=== PATIENT | female | born 1980 | race Caucasian/White ===

== ENCOUNTER 2017-03-14 03:02 | Inpatient (IN) ==
--- NOTE | 2017-03-14 03:06 | Emergency Department Note ---
Disposition Clinical Impression: Acute anxiety Bipolar disorder Qualifiers: Active/Remission status: remission status unspecified Qualified Code(s): F31.9 - Bipolar disorder, unspecified Disposition: Admitted As Inpatient Condition: Good Referrals: NONE,PCP [Primary Care Provider] - Forms: ED Satisfaction Letter Time of Disposition: 05:27 General Adult HPI - General Chief complaint: ED Psychiatric Symptoms Stated complaint: suicidal Time Seen by Provider: 03/14/17 03:04 - Related Data Previous Rx's Medication Instructions Recorded HYDROcodone/Acet 5/325 mg [[place] 1 tab PO Q6H PRN #6 tab 07/05/16 5-325 mg] predniSONE [PredniSONE] 40 mg PO DAILY 6 Days tablet 07/05/16 Tramadol HCl [Ultram] 50 mg PO BID PRN #5 tab 02/21/17 LORazepam [Ativan] 0.5 mg PO TID PRN #6 tablet 03/12/17 Allergies Allergy/AdvReac Type Severity Reaction Status Date / Time NSAIDS (Non-Steroidal Allergy See Verified 03/14/17 03:10 Anti-Inflamma Comments promethazine [From Phenergan] Allergy See Verified 03/14/17 03:10 Comments Sulfa (Sulfonamide Allergy See Verified 03/14/17 03:10 Antibiotics) Comments Past Medical History - Past Medical History Medical history: Reports: asthma, hypertension, migraine, other Psychiatric history: Reports: ADHD, bipolar - Social History Smoking Status: Former smoker Smokeless Tobacco Status: No Alcohol use: Reports: none Drug use: Reports: none Course Vital Signs Temperature 98.1 F 03/14/17 03:10 Pulse Rate 68 03/14/17 03:10 Respiratory Rate 20 03/14/17 03:10 Blood Pressure 160/106 03/14/17 03:10 O2 Sat by Pulse Oximetry 98 03/14/17 03:10 Temperature 98.0 F 03/14/17 03:28 Pulse Rate 90 03/14/17 03:28 Respiratory Rate 20 03/14/17 03:28 Blood Pressure 160/106 03/14/17 03:28 O2 Sat by Pulse Oximetry 99 03/14/17 03:28 Oxygen Delivery Oxygen Delivery Room Air Medical Decision Making - Lab Data Lab results reviewed: Yes I reviewed the patient's lab results. Result diagrams: 03/14/17 03:40 03/14/17 03:40 Lab Results 03/14/17 03/14/17 03/14/17 Range/Units 03:40 03:40 03:40 WBC 7.8 (4.3-11.1) K/mcL RBC 4.06 (3.82-4.97) M/mcL Hgb 11.6 (11.5-15.4) g/dL Hct 35.8 (35.3-44.9) % MCV 88.2 (83.0-100.0) fL MCH 28.6 (28.0-33.3) pg MCHC 32.4 (31.6-35.5) g/dL RDW 13.7 (11.5-14.5) % Plt Count 311 (140-400) K/mcL MPV 10.8 (9.4-12.4) fL Immature Gran % 0.3 (0-4) % Seg Neutrophils % 62.8 % Lymphocytes % 26.6 % Monocytes % 5.7 % Eosinophils % 4.0 % Basophils % 0.6 % Neutrophils # 4.9 (1.6-8.9) K/mcL Lymphocytes # 2.1 (0.6-4.6) K/mcL Monocytes # 0.4 (0.0-1.3) K/mcL Eosinophils # 0.3 (0.0-0.6) K/mcL Basophils # 0.1 (0.0-0.2) K/mcL Sodium 139 (136-145) mEq/L Potassium 3.4 L (3.5-4.5) mEq/L Chloride 105 (98-109) mEq/L Carbon Dioxide 23 (19-29) mEq/L BUN 10 (7-20) mg/dL Creatinine 0.92 (0.57-1.11) mg/dL Est GFR ( Amer) > 60 (> 60) Est GFR (Non-Af Amer) > 60 (> 60) BUN/Creatinine Ratio 11 (6-26) Glucose 106 H (70-99) mg/dL Calculated Osmolality 287 (280-300) Calcium 9.3 (8.6-10.8) mg/dL Serum , Qual Negative (Negative) Urine Color (Yellow) Urine Clarity (Clear) Urine pH (5.0-8.0) pH Units Ur Specific [place] (1.010-1.025) Urine Protein (Neg-Trace) mg/dL Urine Glucose (UA) (Normal) mg/dL Urine Ketones (Negative) mg/dL Urine Blood (Negative) Urine Nitrite (Negative) Urine Bilirubin (Negative) Urine Urobilinogen (Normal) mg/dL Ur Leukocyte Esterase (Negative) Salicylates < 5.0 L (15-30) mg/dL Urine Opiates Screen (Qdjnfb=987) ng/mL Acetaminophen < 1.0 L (10-30) mcg/mL Ur Barbiturates Screen (Ncmcbv=125) ng/mL Ur Phencyclidine Scrn (Cutoff=25) ng/mL Ur Amphetamines Screen (Lbcrxh=4043) ng/mL U Benzodiazepines Scrn (Dcczmt=647) ng/mL Urine Cocaine Screen (Cutoff= 300) ng/mL U Marijuana (THC) Screen (Cutoff = 50) ng/mL Ethyl Alcohol < 10 (0-10) mg/dL 03/14/17 03/14/17 Range/Units 04:00 04:00 WBC (4.3-11.1) K/mcL RBC (3.82-4.97) M/mcL Hgb (11.5-15.4) g/dL Hct (35.3-44.9) % MCV (83.0-100.0) fL MCH (28.0-33.3) pg MCHC (31.6-35.5) g/dL RDW (11.5-14.5) % Plt Count (140-400) K/mcL MPV (9.4-12.4) fL Immature Gran % (0-4) % Seg Neutrophils % % Lymphocytes % % Monocytes % % Eosinophils % % Basophils % % Neutrophils # (1.6-8.9) K/mcL Lymphocytes # (0.6-4.6) K/mcL Monocytes # (0.0-1.3) K/mcL Eosinophils # (0.0-0.6) K/mcL Basophils # (0.0-0.2) K/mcL Sodium (136-145) mEq/L Potassium (3.5-4.5) mEq/L Chloride (98-109) mEq/L Carbon Dioxide (19-29) mEq/L BUN (7-20) mg/dL Creatinine (0.57-1.11) mg/dL Est GFR ( Amer) (> 60) Est GFR (Non-Af Amer) (> 60) BUN/Creatinine Ratio (6-26) Glucose (70-99) mg/dL Calculated Osmolality (280-300) Calcium (8.6-10.8) mg/dL Serum , Qual (Negative) Urine Color Yellow (Yellow) Urine Clarity Clear (Clear) Urine pH 6.0 (5.0-8.0) pH Units Ur Specific [place] 1.017 (1.010-1.025) Urine Protein Negative (Neg-Trace) mg/dL Urine Glucose (UA) Normal (Normal) mg/dL Urine Ketones Negative (Negative) mg/dL Urine Blood Negative (Negative) Urine Nitrite Negative (Negative) Urine Bilirubin Negative (Negative) Urine Urobilinogen Normal (Normal) mg/dL Ur Leukocyte Esterase Negative (Negative) Salicylates (15-30) mg/dL Urine Opiates Screen Negative (Zvkxhw=063) ng/mL Acetaminophen (10-30) mcg/mL Ur Barbiturates Screen Negative (Wpfzwy=023) ng/mL Ur Phencyclidine Scrn Negative (Cutoff=25) ng/mL Ur Amphetamines Screen Negative (Rzofcy=3718) ng/mL U Benzodiazepines Scrn Negative (Xvjpzn=910) ng/mL Urine Cocaine Screen Negative (Cutoff= 300) ng/mL U Marijuana (THC) Screen Negative (Cutoff = 50) ng/mL Ethyl Alcohol (0-10) mg/dL Attestation Statement - Attestation Attestation: For this encounter, I have reviewed the DIRECTOR OF FINANCE or PA documentation, treatment plan, and medical decision making; and I have had face to face time with this patient. [id number] time provided Patient arrives by EMS. She requests behavioral evaluation. Appears in no acute distress on exam
--- NOTE | 2017-03-14 03:23 | Emergency Department Note ---
Disposition Clinical Impression: Acute anxiety Bipolar disorder Qualifiers: Active/Remission status: remission status unspecified Qualified Code(s): F31.9 - Bipolar disorder, unspecified Disposition: Still a Patient Condition: Good Referrals: NONE,PCP [Primary Care Provider] - Forms: ED Satisfaction Letter Time of Disposition: 05:15 Psych HPI - General Chief Complaint: ED Psychiatric Symptoms Stated Complaint: suicidal Time Seen by Provider: 03/14/17 03:04 Nursing Notes Reviewed: Yes Vital Signs Reviewed: Yes - History of Present Illness HPI Narrative: 36-year-old female complains of concern for her safety at home, and she also mentions concern for the safety of her son could be.. She does describe a history of psychiatric illness, but had called squad today after she describes as a argument with her mom. Patient states that her mood has been "explosive" reset ever has before, and she is concerned. She was seen in this department 2 separate times in the past 2 days, her first visit she was given a prescription of Ativan, that the patient states that she is not taking. She mentions she has a psychiatric appointment scheduled for later today, but states that she will not be able to get there. She mentions that she does have homicidal ideations, specifically saying that she wants to kill "random people" she denies any suicidal ideation or thoughts of self-harm, she denies any visual or auditory hallucinations. She denies any pain, or any recent illness. - Related Data Previous Rx's Medication Instructions Recorded HYDROcodone/Acet 5/325 mg [[place] 1 tab PO Q6H PRN #6 tab 07/05/16 5-325 mg] predniSONE [PredniSONE] 40 mg PO DAILY 6 Days tablet 07/05/16 Tramadol HCl [Ultram] 50 mg PO BID PRN #5 tab 02/21/17 LORazepam [Ativan] 0.5 mg PO TID PRN #6 tablet 03/12/17 Allergies Allergy/AdvReac Type Severity Reaction Status Date / Time NSAIDS (Non-Steroidal Allergy See Verified 03/14/17 03:10 Anti-Inflamma Comments promethazine [From Phenergan] Allergy See Verified 03/14/17 03:10 Comments Sulfa (Sulfonamide Allergy See Verified 03/14/17 03:10 Antibiotics) Comments All systems ED: reviewed and negative except as stated. Constitutional: Denies: fever, chills Eyes: Denies: vision change ENT ED: Reports: other (tongue "bumps"). Denies: throat pain Cardiovascular: Denies: chest pain Respiratory: Denies: dyspnea Gastrointestinal: Denies: abdominal pain, nausea, vomiting Genitourinary: Denies: dysuria Musculoskeletal: Denies: back pain Integumentary: Denies: rash Neurological: Denies: headache Psychiatric: Reports: anxiety, homicidal thoughts. Denies: depression, suicidal thoughts, auditory hallucinations, visual hallucinations Endocrine: Denies: fatigue Hematological/Lymphatic: Denies: easy bleeding Allergic/Immunologic: Denies: facial swelling Past Medical History - Past Medical History Medical history: Reports: asthma, hypertension, migraine, other Psychiatric history: Reports: ADHD, bipolar - Social History Smoking Status: Former smoker Smokeless Tobacco Status: No Alcohol use: Reports: none Drug use: Reports: none Physical Exam - General Limitations: altered mental status General appearance: in no apparent distress - Head Head exam: atraumatic, normocephalic - Eye Eye exam: Absent: conjunctival injection - ENT ENT exam: normal oropharynx, mucous membranes moist - Expanded ENT Exam Nose exam: negative: rhinorrhea Mouth exam: Present: normal external inspection, tongue normal. Absent: drooling, trismus, lip swelling, tongue elevation, tounge swelling - Neck Neck exam: Present: full ROM - Chest Chest inspection: Present: symmetric chest wall rise - Respiratory Respiratory exam: Absent: respiratory distress - Cardiovascular Cardiovascular exam: Present: regular rate - Extremities Exam Extremities exam: Present: full ROM, normal capillary refill - Back Exam Back exam: Present: full ROM - Neurological Exam Neurological exam: Present: alert, oriented X3 - Psychiatric Psychiatric exam: Present: normal affect, agitated, anxious, manic, homicidal ideation. Absent: suicidal ideation - Skin Skin exam: Present: warm, dry, intact, normal color. Absent: rash, cyanosis, diaphoresis Course Course Narrative: Patient is a 36-year-old female who arrives via squad with chief complaint of concern for her safety at home as well as received his her child. She reported that she has a history of bipolar disorder. She was seen at 2 days ago here in the emergency department, given prescriptions with Ativan, and regulations to follow-up with her psychiatrist that she has scheduled for an appointment later today (03/14/2017). She also seen in this department yesterday, was evaluated by one of the staff, with recommendations to follow-up with her psychiatrist tomorrow. She denies any pain, recent illness, but has told nursing that she may be . She presents tonight with complaint of worsening mood. She mentions that she wants to kill random people. She describes an altercation with her mother. I reviewed the patient's medical records, apparently child protective services are involved, and patient's mother was concerned for her well-being as well. On examination, patient is alert and oriented 3, well-appearing in no acute distress. Head face extremities atraumatic. No evidence of any respiratory distress. Heart rate within limits. Skin warm dry intact normal color. She appears clinically sober, however easily agitated. Due to patient's agitation, reported homicidal ideation, and this being her third visit to emergency department, I do feel that a evaluation by behavioral health is warranted at this time. I will attempt to clear her medically for 1 evaluation. - Reevaluation(s) Reevaluation #1: Patient's lab work unremarkable. She does have amphetamines on her urine drug screen, but medical records shows that she does take ADHD medications. Her vitals are stable to normal limits. She states that she is hungry. 1A has been contacted. Time: 04:39 Reevaluation #2: 1A at bedside. At this time it is the end of my shift, care of this patient will be transferred over to Dr. Navarro. Please see his further documentation for details. Time: 05:15 Vital Signs Temperature 98.1 F 03/14/17 03:10 Pulse Rate 68 03/14/17 03:10 Respiratory Rate 20 03/14/17 03:10 Blood Pressure 160/106 03/14/17 03:10 O2 Sat by Pulse Oximetry 98 03/14/17 03:10 Temperature 98.0 F 03/14/17 03:28 Pulse Rate 90 03/14/17 03:28 Respiratory Rate 20 03/14/17 03:28 Blood Pressure 160/106 03/14/17 03:28 O2 Sat by Pulse Oximetry 99 03/14/17 03:28 Oxygen Delivery Oxygen Delivery Room Air Psych - Lab Data Result diagrams: 03/14/17 03:40 03/14/17 03:40 Lab Results 03/14/17 03/14/17 03/14/17 Range/Units 03:40 03:40 03:40 WBC 7.8 (4.3-11.1) K/mcL RBC 4.06 (3.82-4.97) M/mcL Hgb 11.6 (11.5-15.4) g/dL Hct 35.8 (35.3-44.9) % MCV 88.2 (83.0-100.0) fL MCH 28.6 (28.0-33.3) pg MCHC 32.4 (31.6-35.5) g/dL RDW 13.7 (11.5-14.5) % Plt Count 311 (140-400) K/mcL MPV 10.8 (9.4-12.4) fL Immature Gran % 0.3 (0-4) % Seg Neutrophils % 62.8 % Lymphocytes % 26.6 % Monocytes % 5.7 % Eosinophils % 4.0 % Basophils % 0.6 % Neutrophils # 4.9 (1.6-8.9) K/mcL Lymphocytes # 2.1 (0.6-4.6) K/mcL Monocytes # 0.4 (0.0-1.3) K/mcL Eosinophils # 0.3 (0.0-0.6) K/mcL Basophils # 0.1 (0.0-0.2) K/mcL Sodium 139 (136-145) mEq/L Potassium 3.4 L (3.5-4.5) mEq/L Chloride 105 (98-109) mEq/L Carbon Dioxide 23 (19-29) mEq/L BUN 10 (7-20) mg/dL Creatinine 0.92 (0.57-1.11) mg/dL Est GFR ( Amer) > 60 (> 60) Est GFR (Non-Af Amer) > 60 (> 60) BUN/Creatinine Ratio 11 (6-26) Glucose 106 H (70-99) mg/dL Calculated Osmolality 287 (280-300) Calcium 9.3 (8.6-10.8) mg/dL Serum , Qual Negative (Negative) Urine Color (Yellow) Urine Clarity (Clear) Urine pH (5.0-8.0) pH Units Ur Specific [place] (1.010-1.025) Urine Protein (Neg-Trace) mg/dL Urine Glucose (UA) (Normal) mg/dL Urine Ketones (Negative) mg/dL Urine Blood (Negative) Urine Nitrite (Negative) Urine Bilirubin (Negative) Urine Urobilinogen (Normal) mg/dL Ur Leukocyte Esterase (Negative) Salicylates < 5.0 L (15-30) mg/dL Urine Opiates Screen (Radrfg=479) ng/mL Acetaminophen < 1.0 L (10-30) mcg/mL Ur Barbiturates Screen (Angzqb=734) ng/mL Ur Phencyclidine Scrn (Cutoff=25) ng/mL Ur Amphetamines Screen (Xspiyx=2434) ng/mL U Benzodiazepines Scrn (Bbnopu=759) ng/mL Urine Cocaine Screen (Cutoff= 300) ng/mL U Marijuana (THC) Screen (Cutoff = 50) ng/mL Ethyl Alcohol < 10 (0-10) mg/dL 03/14/17 03/14/17 Range/Units 04:00 04:00 WBC (4.3-11.1) K/mcL RBC (3.82-4.97) M/mcL Hgb (11.5-15.4) g/dL Hct (35.3-44.9) % MCV (83.0-100.0) fL MCH (28.0-33.3) pg MCHC (31.6-35.5) g/dL RDW (11.5-14.5) % Plt Count (140-400) K/mcL MPV (9.4-12.4) fL Immature Gran % (0-4) % Seg Neutrophils % % Lymphocytes % % Monocytes % % Eosinophils % % Basophils % % Neutrophils # (1.6-8.9) K/mcL Lymphocytes # (0.6-4.6) K/mcL Monocytes # (0.0-1.3) K/mcL Eosinophils # (0.0-0.6) K/mcL Basophils # (0.0-0.2) K/mcL Sodium (136-145) mEq/L Potassium (3.5-4.5) mEq/L Chloride (98-109) mEq/L Carbon Dioxide (19-29) mEq/L BUN (7-20) mg/dL Creatinine (0.57-1.11) mg/dL Est GFR ( Amer) (> 60) Est GFR (Non-Af Amer) (> 60) BUN/Creatinine Ratio (6-26) Glucose (70-99) mg/dL Calculated Osmolality (280-300) Calcium (8.6-10.8) mg/dL Serum , Qual (Negative) Urine Color Yellow (Yellow) Urine Clarity Clear (Clear) Urine pH 6.0 (5.0-8.0) pH Units Ur Specific [place] 1.017 (1.010-1.025) Urine Protein Negative (Neg-Trace) mg/dL Urine Glucose (UA) Normal (Normal) mg/dL Urine Ketones Negative (Negative) mg/dL Urine Blood Negative (Negative) Urine Nitrite Negative (Negative) Urine Bilirubin Negative (Negative) Urine Urobilinogen Normal (Normal) mg/dL Ur Leukocyte Esterase Negative (Negative) Salicylates (15-30) mg/dL Urine Opiates Screen Negative (Yzvisc=176) ng/mL Acetaminophen (10-30) mcg/mL Ur Barbiturates Screen Negative (Biuuig=324) ng/mL Ur Phencyclidine Scrn Negative (Cutoff=25) ng/mL Ur Amphetamines Screen Negative (Pudbjn=1775) ng/mL U Benzodiazepines Scrn Negative (Jmjyqe=413) ng/mL Urine Cocaine Screen Negative (Cutoff= 300) ng/mL U Marijuana (THC) Screen Negative (Cutoff = 50) ng/mL Ethyl Alcohol (0-10) mg/dL Psychiatric Medical Clearance - Medical Clearance Checklist Medical History: Acute anxiety (Acute) Mental health-related complaint (Acute) Bipolar disorder (Acute) Abdominal cramping (Inactive) Cervical motion tenderness (Inactive) Hypertension (Inactive) Hypokalemia (Inactive) Lumbar radiculopathy, right (Inactive) RUQ abdominal pain (Inactive) No Social History Section defined Current Vitals: Last Vital Signs Temp 98.0 F 03/14/17 03:28 Pulse 90 03/14/17 03:28 Resp 20 03/14/17 03:28 BP 160/106 03/14/17 03:28 Pulse Ox 99 03/14/17 03:28 Psychiatric Lab Panel: Drug Levels and Toxicity 03/14/17 03/14/17 03:40 04:00 Urine Opiates Screen Negative Acetaminophen < 1.0 L Ur Barbiturates Screen Negative Ur Phencyclidine Scrn Negative Ur Amphetamines Screen Negative U Benzodiazepines Scrn Negative Urine Cocaine Screen Negative U Marijuana (THC) Screen Negative Ethyl Alcohol < 10 Abnormal Labs: Abnormal lab results Potassium 3.4 mEq/L (3.5-4.5) L 03/14/17 03:40 Glucose 106 mg/dL (70-99) H 03/14/17 03:40 Salicylates < 5.0 mg/dL (15-30) L 03/14/17 03:40 Acetaminophen < 1.0 mcg/mL (10-30) L 03/14/17 03:40 Statement of Medical Clearance: I have evaluated the patient, reviewed diagnostic information, and certify that the patient's medical condition is sufficiently stable that transfer to the psychiatric unit does not pose a significant risk of deterioration.
[2017-03-14 03:54] LABS: Basophils # 0.1 K/mcL (0.0-0.2); Basophils % 0.6 %; Eosinophils # 0.3 K/mcL (0.0-0.6); Hematocrit 35.8 % (35.3-44.9); Hemoglobin 11.6 g/dL (11.5-15.4); Immature Granulocytes % 0.3 % (0-4); Lymphocytes # 2.1 K/mcL (0.6-4.6); Lymphocytes % 26.6 %; Mean Corpuscular HGB Conc 32.4 g/dL (31.6-35.5); Mean Corpuscular Hemoglobin 28.6 pg (28.0-33.3); Mean Corpuscular Volume 88.2 fL (83.0-100.0); Mean Platelet Volume 10.8 fL (9.4-12.4); Monocytes # 0.4 K/mcL (0.0-1.3); Monocytes % 5.7 %; Neutrophils # 4.9 K/mcL (1.6-8.9); Platelet Count 311 K/mcL (140-400); Red Blood Count 4.06 M/mcL (3.82-4.97); Red Cell Distribution Width 13.7 % (11.5-14.5); Segmented Neutrophils % 62.8 %
[2017-03-14 04:07] LABS: BUN/Creatinine Ratio 11 (6-26); Blood Urea Nitrogen 10 mg/dL (7-20); Calcium 9.3 mg/dL (8.6-10.8); Carbon Dioxide 23 mEq/L (19-29); Chloride 105 mEq/L (98-109); Glucose 106 mg/dL (70-99); Osmolality,Calculated 287 (280-300); Potassium 3.4 mEq/L (3.5-4.5); Sodium 139 mEq/L (136-145); eGFR For African Americans > 60 (> 60); eGFR For Non-African Americans > 60 (> 60)
[2017-03-14 04:09] LABS: Acetaminophen < 1.0 mcg/mL (10-30); Ethanol < 10 mg/dL (0-10); Salicylate < 5.0 mg/dL (15-30)
[2017-03-14 04:12] LABS: Bilirubin,Urine Negative (Negative); Blood,Urine Negative (Negative); Clarity,Urine Clear (Clear); Color,Urine Yellow (Yellow); Glucose,Urine (UA) Normal (Normal); Ketones,Urine Negative (Negative); Leukocyte Esterase,Urine Negative (Negative); Nitrite,Urine Negative (Negative); Protein,Urine Negative (Neg-Trace); Specific Gravity,Urine 1.017 (1.010-1.025); Urobilinogen,Urine Normal (Normal)
[2017-03-14 04:16] LABS: Amphetamine Screen,Urine Negative ng/mL (Cutoff=1000); Barbiturate Screen,Urine Negative ng/mL (Cutoff=200); Benzodiazepines Screen,Urine Negative ng/mL (Cutoff=200); Cannabinoid Screen,Urine Negative ng/mL (Cutoff = 50); Cocaine Screen,Urine Negative ng/mL (Cutoff= 300); Opiate Screen,Urine Negative ng/mL (Cutoff=300); Phencyclidine Screen,Urine Negative ng/mL (Cutoff=25)
[2017-03-14] MEDS ORDERED: *HR* LORazepam 2 MG/ML VIAL IM ONE (05:26)
[2017-03-14] MEDS ORDERED: MOM Conc 10 ML UD.LIQ PO PRN (05:48)
[2017-03-14] MEDS ORDERED: Mag Hydrox/Al Hydrox/Simeth 30 ML UDC PO PRN (05:48)
[2017-03-14] MEDS ORDERED: *HR* LORazepam 2 MG/ML VIAL IM PRN (05:48)
[2017-03-14] MEDS ORDERED: Haloperidol Lactate 5 MG/ML VIAL IM PRN (05:48)
--- NOTE | 2017-03-14 09:42 | Psychiatry History & Physical ---
Date of Encounter: 03/14/17 Time of Encounter: 10:00 History of Present Illness Patient Stated Chief Complaint: "I am having some issues." Medicare Admission Attestation: For traditional Medicare patients the provided hospital inpatient services are reasonable and necessary and in the case of services not specified as inpatient -only under 42 CFR 419.22 (n), that they are appropriately provided as inpatient services in accordance 42 CFR 412.3. For Critical Access Hospital the patient may reasonably be expected to be discharged or transferred to a hospital within 96 hours after admission to the Critical Access Hospital. Admitted From: Emergency Dept Plans for Post Hospital Care: Home History of Present Illness: Ms. Gil is a 36 year old female with a reported history of bipolar disorder as well as anxiety who presented to the hospital reporting vague homicidal ideation and some stressors related to custody of her son. According to staff CPS is now involved and this is concerning for the patient. She was agitated and upset in the ER last night and given IM medication early this morning. Since admission she has been groggy and a little bit confused. She reports that she has had difficulty sleeping and difficulty with her mood. She is unable to verify whether or not she wants to hurt herself or others at this time. She is a bit groggy. 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 She states there is a custody agreement between her and her child's father. "He is just a sperm donor." She states that the child is very upset about something but is not able to give details about this. Her thought processes is not organized at this time. She is irritable and upset about being woken up from sleep. She does report depressed mood and mood swings over the past few days. Past Med Surg Social Fam HX - Past Medical History Medical history: asthma, hypertension, migraine, other - Past Psychiatric History Psychiatric history: Reports: bipolar Past psychiatric history details: Patient last saw her current psychiatrist about two months. Patient is unclear about previous psych admissions but does have long-standing history of outpatient treatment for bipolar disorder. She denies suicide attempts in the past. Family psychiatric history: Yes Family Psychiatric History Details: Mother and grandfather have depression. Family History of Suicide: Completed (Grandfather) - Social History Smoking Status: Former smoker Smokeless Tobacco Status: No Alcohol use: none Drug use: none Medications & Allergies Tramadol HCl [Ultram] 50 mg PO BID PRN #5 tab 02/21/17 [Rx] Buspirone HCl [Buspar] 15 mg PO BID 03/14/17 [History] Carvedilol 3.125 mg PO BID 03/14/17 [History] Dextroamphetamine/Amphetamine [Adderall 15 mg Tablet] 15 mg PO BID 03/14/17 [ History] Levothyroxine [Synthroid] 88 mcg PO DAILY 03/14/17 [History] [place] Carbonate 600 mg PO QAM 03/14/17 [History] [place] Carbonate [[place] Carbonate] 900 mg PO QPM 03/14/17 [History] Lurasidone [Latuda] 40 mg PO DAILY 03/14/17 [History] Metformin HCl [Metformin HCl ER] 500 mg PO DAILY 03/14/17 [History] Montelukast [Singulair] 10 mg PO DAILY 03/14/17 [History] 3 Allergy/AdvReac Type Severity Reaction Status Date / Time NSAIDS (Non-Steroidal Allergy See Verified 03/14/17 03:10 Anti-Inflamma Comments promethazine [From Phenergan] Allergy See Verified 03/14/17 03:10 Comments Sulfa (Sulfonamide Allergy See Verified 03/14/17 03:10 Antibiotics) Comments Review of Systems ROS limited: due to patient condition Psychiatric: Reports: depression, anxiety, abnormal sleep pattern, homicidal ideation, confusion, memory loss, difficulty concentrating, hopelessness, irritability, mood swings Mental Status Exam Patient orientation: Yes Person, No Time, Yes Place Level of alertness: Sedated Patient appearance: Disheveled Behavior: restless, uncooperative, distractible Psychomotor activity: Slowed Eye contact: Avoids Eye Contact Mood description: Irritable Affect description: congruent with mood Speech pattern: Slowed, Slurred Speech volume: Normal Thought process: Disorganized Thought content: Yes Poverty of Content Perceptual disturbances: No Reacting to internal stimuli, No Auditory hallucinations Attention span: Unable to Focus, Unable to Sustain Attention Memory description: Recent Impaired Patient reliability: Not Reliable Historian Intelligence estimate: Average Judgment: Poor Insight: None Results - Vital Signs Vital signs: Temp Pulse Resp BP Pulse Ox 97.4 F L 70 18 149/89 99 03/14/17 06:00 03/14/17 06:00 03/14/17 06:00 03/14/17 06:00 03/14/17 05:49 - Labs Labs: Laboratory Last Values WBC 7.8 K/mcL (4.3-11.1) 03/14/17 03:40 RBC 4.06 M/mcL (3.82-4.97) 03/14/17 03:40 Hgb 11.6 g/dL (11.5-15.4) 03/14/17 03:40 Hct 35.8 % (35.3-44.9) 03/14/17 03:40 MCV 88.2 fL (83.0-100.0) 03/14/17 03:40 MCH 28.6 pg (28.0-33.3) 03/14/17 03:40 MCHC 32.4 g/dL (31.6-35.5) 03/14/17 03:40 RDW 13.7 % (11.5-14.5) 03/14/17 03:40 Plt Count 311 K/mcL (140-400) 03/14/17 03:40 MPV 10.8 fL (9.4-12.4) 03/14/17 03:40 Immature Gran % 0.3 % (0-4) 03/14/17 03:40 Seg Neutrophils % 62.8 % 03/14/17 03:40 Lymphocytes % 26.6 % 03/14/17 03:40 Monocytes % 5.7 % 03/14/17 03:40 Eosinophils % 4.0 % 03/14/17 03:40 Basophils % 0.6 % 03/14/17 03:40 Neutrophils # 4.9 K/mcL (1.6-8.9) 03/14/17 03:40 Lymphocytes # 2.1 K/mcL (0.6-4.6) 03/14/17 03:40 Monocytes # 0.4 K/mcL (0.0-1.3) 03/14/17 03:40 Eosinophils # 0.3 K/mcL (0.0-0.6) 03/14/17 03:40 Basophils # 0.1 K/mcL (0.0-0.2) 03/14/17 03:40 Sodium 139 mEq/L (136-145) 03/14/17 03:40 Potassium 3.4 mEq/L (3.5-4.5) L 03/14/17 03:40 Chloride 105 mEq/L (98-109) 03/14/17 03:40 Carbon Dioxide 23 mEq/L (19-29) 03/14/17 03:40 BUN 10 mg/dL (7-20) 03/14/17 03:40 Creatinine 0.92 mg/dL (0.57-1.11) 03/14/17 03:40 Est GFR ( Amer) > 60 (> 60) 03/14/17 03:40 Est GFR (Non-Af Amer) > 60 (> 60) 03/14/17 03:40 BUN/Creatinine Ratio 11 (6-26) 03/14/17 03:40 Glucose 106 mg/dL (70-99) H 03/14/17 03:40 Calculated Osmolality 287 (280-300) 03/14/17 03:40 Calcium 9.3 mg/dL (8.6-10.8) 03/14/17 03:40 Serum , Qual Negative (Negative) 03/14/17 03:40 Urine Color Yellow (Yellow) 03/14/17 04:00 Urine Clarity Clear (Clear) 03/14/17 04:00 Urine pH 6.0 pH Units (5.0-8.0) 03/14/17 04:00 Ur Specific [place] 1.017 (1.010-1.025) 03/14/17 04:00 Urine Protein Negative mg/dL (Neg-Trace) 03/14/17 04:00 Urine Glucose (UA) Normal mg/dL (Normal) 03/14/17 04:00 Urine Ketones Negative mg/dL (Negative) 03/14/17 04:00 Urine Blood Negative (Negative) 03/14/17 04:00 Urine Nitrite Negative (Negative) 03/14/17 04:00 Urine Bilirubin Negative (Negative) 03/14/17 04:00 Urine Urobilinogen Normal mg/dL (Normal) 03/14/17 04:00 Ur Leukocyte Esterase Negative (Negative) 03/14/17 04:00 Salicylates < 5.0 mg/dL (15-30) L 03/14/17 03:40 Urine Opiates Screen Negative ng/mL (Lrmebn=578) 03/14/17 04:00 Acetaminophen < 1.0 mcg/mL (10-30) L 03/14/17 03:40 Ur Barbiturates Screen Negative ng/mL (Ksvjuf=149) 03/14/17 04:00 Ur Phencyclidine Scrn Negative ng/mL (Cutoff=25) 03/14/17 04:00 Ur Amphetamines Screen Negative ng/mL (Poxjfg=9394) 03/14/17 04:00 U Benzodiazepines Scrn Negative ng/mL (Vfwnpt=304) 03/14/17 04:00 Urine Cocaine Screen Negative ng/mL (Cutoff= 300) 03/14/17 04:00 U Marijuana (THC) Screen Negative ng/mL (Cutoff = 50) 03/14/17 04:00 Ethyl Alcohol < 10 mg/dL (0-10) 03/14/17 03:40 Assessment and Plan (1) Bipolar disorder Current visit: Yes Status: Acute Plan: Admit inpatient for safety and stabilization, Close observation, Suicide Precautions per unit protocol, Encourage participation in unit milieu, Group Therapy, Monitor sleep, Monitor appetite Additional Plan: Patient has a history of bipolar disorder reporting some mood symptoms as well as vague homicidal ideations in the ER. She is now somewhat confused after being given medication for agitation. We will admit and continue to monitor. Patient's lithium level was low in the ER patient has likely not been taking this as prescribed. Restart home meds and monitor closely for side effects. Suicide precautions. Risks, benefits, side effects, alternatives discussed w/pt: Yes Patient agreeable to treatment: Yes Plans for Post Hospital Care: Home Qualifiers: Active/Remission status: in remission of unspecified degree Qualified Code( s): F31.70 - Bipolar disorder, currently in remission, most recent episode unspecified
[2017-03-14] MEDS: *HR* LORazepam 1 MG TABLET PO PRN (13:45)
[2017-03-14] MEDS: Acetaminophen 325 MG TABLET PO PRN (16:15)
[2017-03-15] MEDS: hydrOXYzine pamoate 25 MG CAPSULE PO PRN ×3 (01:47→15:48)
[2017-03-15] MEDS: *HR* LORazepam 1 MG TABLET PO PRN (01:48)
[2017-03-15] MEDS: Acetaminophen 325 MG TABLET PO PRN ×3 (02:18→22:42)
--- NOTE | 2017-03-15 09:25 | Psychiatry Progress Note ---
Date of Encounter: 03/15/17 Time of Encounter: 09:00 Subjective Interval history: Sharmila is seen today for follow-up of her mood symptoms. She is more organized today and less confused. She did not become agitated several times yesterday and required as needed medication to help her calm down. She is very upset about her son and the concern that he may be being abused. There is apparently an open CPS case on this matter. Patient reports that she is wanting to ensure that her son is well cared for. She has a lot of anger towards her ex- but she is not able to verbalize why she believes that her son is being abused. She denies SI or HI. She does report fatigue. Patient states that often times after she is "manic" she sleeps for several days. Review of Systems Psychiatric: Reports: depression, anxiety, abnormal sleep pattern, difficulty concentrating, hopelessness, irritability, mood swings Objective: Exam Patient orientation: Yes Person, Yes Time, Yes Place Level of alertness: Alert Patient appearance: Unkempt, Disheveled, Obese Behavior: restless, dramatic Psychomotor activity: Normal Eye contact: Minimal Contact Mood description: Depressed, Anxious Affect description: labile Speech pattern: Normal rate, Normal rhythm, Normal tone Speech volume: Normal Thought process: Intact Thought content: No Suicidal ideation, No Homicidal ideation Perceptual disturbances: No Auditory hallucinations, No Visual hallucinations Judgment: Limited Insight: Minimal Results - Vital Signs Vital Signs: Temp Pulse Resp BP Pulse Ox 97.8 F 66 16 124/82 99 03/14/17 20:46 03/14/17 20:46 03/14/17 20:46 03/14/17 20:46 03/14/17 05:49 - Labs Labs: Laboratory Results - last 24 hr 03/14/17 19:37 POC Glucose 100 H Assessment and Plan (1) Bipolar disorder Current visit: Yes Status: Acute Plan: Continue hospitalization, Close observation, Suicide Precautions per unit protocol, Encourage participation in unit milieu, Group Therapy, Monitor sleep, Monitor appetite Additional Plan: We will make sure her home meds are restarted and confirmed. Patient reports that she is taking them as prescribed a lithium level was low. We will monitor response to restarting meds and encourage patient to use positive coping strategies rather than when necessary meds for agitation. Encourage group attendance. Risks, benefits, side effects, alternatives discussed w/pt: Yes Patient agreeable to treatment: Yes Qualifiers: Active/Remission status: in remission of unspecified degree Qualified Code( s): F31.70 - Bipolar disorder, currently in remission, most recent episode unspecified Consult Discharge Plan - Plan Referrals: NONE,PCP [Primary Care Provider] -
[2017-03-15] MEDS: Lithium Carbonate 300 MG CAPSULE PO SCH ×2 (12:17→21:11)
[2017-03-15] MEDS: Nicotine 2 MG GUM BC PRN ×3 (12:28→21:12)
[2017-03-15] MEDS: traZODone 50 MG TABLET PO PRN (21:11)
[2017-03-15] MEDS ORDERED: hydrOXYzine pamoate 25 MG CAPSULE PO ONE (22:25)
[2017-03-15] MEDS: Ondansetron ODT 4 MG TAB.RAPDIS SL PRN (22:26)
[2017-03-16] MEDS: Nicotine 2 MG GUM BC PRN ×5 (02:35→17:35)
[2017-03-16] MEDS: Acetaminophen 325 MG TABLET PO PRN ×2 (04:41→18:53)
--- NOTE | 2017-03-16 09:04 | Psychiatry Progress Note ---
Date of Encounter: 03/16/17 Time of Encounter: 08:40 Subjective Interval history: Patient seen today for follow-up of her mood symptoms. She became very agitated last night demanding medications with staff as cursing at them. She is apologetic today we discussed that something she can ask the staff without cursing. Patient is agreeable to being more polite and appropriate with peers and staff. Patient is setting up other peers to get food and things that she wants from staff as well. Patient reports she did not sleep last night because of back pain. She also reports she is on some sort of medication for her asthma which she wants restarted. She continues to be labile and agitated. Thought processes linear today. She does very quickly become tearful when discussing her son. Review of Systems Psychiatric: Reports: depression, anxiety, abnormal sleep pattern, anhedonia, difficulty concentrating, hopelessness, irritability, mood swings Objective: Exam Patient orientation: Yes Person, Yes Place Level of alertness: Alert Patient appearance: Unkempt, Disheveled, Obese Behavior: agitated, hostile, impulsive, dramatic Psychomotor activity: Slowed Eye contact: Fleeting Contact Mood description: Labile, Irritable Affect description: labile, dysphoric Speech pattern: Normal rate, Normal rhythm, Normal tone Speech volume: Normal Thought process: Tangential Thought content: Yes Suicidal ideation Perceptual disturbances: No Reacting to internal stimuli, No Auditory hallucinations, No Visual hallucinations Judgment: Limited Insight: Minimal Results - Vital Signs Vital Signs: Temp Pulse Resp BP Pulse Ox 98.2 F 62 20 141/88 99 03/16/17 08:47 03/16/17 08:47 03/16/17 08:47 03/16/17 08:47 03/14/17 05:49 Assessment and Plan (1) Bipolar disorder Current visit: Yes Status: Acute Plan: Continue hospitalization, Close observation, Suicide Precautions per unit protocol, Encourage participation in unit milieu, Group Therapy, Monitor sleep, Monitor appetite Additional Plan: Increase lithium. We will review med list from [facility] and restart appropriate meds for her asthma. Encouraged patient to use appropriate coping strategies and communication skills. Encourage group attendance. Encourage appropriate sleep-wake cycle. Risks, benefits, side effects, alternatives discussed w/pt: Yes Patient agreeable to treatment: Yes Qualifiers: Active/Remission status: in remission of unspecified degree Qualified Code( s): F31.70 - Bipolar disorder, currently in remission, most recent episode unspecified Consult Discharge Plan - Plan Referrals: [facility], [facility] [Other] - 03/31/17 11:00 am (You will see Dr. Bland for outpatient psychiatric assessment and medication management services on 2016 at 11:00 AM.) [facility] [Outside] - 04/06/17 10:15 am (The above appointment is with [facility] for mental health counseling services. )
[2017-03-16] MEDS: *HR* Metformin 500 MG TABLET PO SCH (11:08)
[2017-03-16] MEDS: Ondansetron ODT 4 MG TAB.RAPDIS SL PRN ×2 (11:48→20:37)
[2017-03-16] MEDS: hydrOXYzine pamoate 25 MG CAPSULE PO PRN ×2 (12:45→17:53)
[2017-03-16] MEDS: Lithium Carbonate 300 MG CAPSULE PO SCH (21:17)
[2017-03-16] MEDS: Loratadine/Pseudophed (12 HR) 1 EACH TABLET PO SCH (21:18)
[2017-03-16] MEDS: traZODone 50 MG TABLET PO PRN (21:18)
[2017-03-16] MEDS ORDERED: hydrOXYzine pamoate 25 MG CAPSULE PO ONE (22:08)
[2017-03-17] MEDS: Nicotine 2 MG GUM BC PRN ×4 (01:15→23:11)
[2017-03-17] MEDS: Acetaminophen 325 MG TABLET PO PRN ×3 (02:33→23:10)
[2017-03-17] MEDS: hydrOXYzine pamoate 25 MG CAPSULE PO PRN ×2 (02:33→19:48)
[2017-03-17] MEDS: Ondansetron ODT 4 MG TAB.RAPDIS SL PRN (02:34)
[2017-03-17] MEDS ORDERED: Haloperidol Lactate 5 MG/ML VIAL IM ONE (03:38)
[2017-03-17] MEDS ORDERED: Haloperidol Lactate 5 MG/ML VIAL ONE (03:43)
[2017-03-17] MEDS ORDERED: OLANZapine 10 MG TAB.RAPDIS PO STA (04:22)
[2017-03-17] MEDS: Lithium Carbonate 300 MG CAPSULE PO SCH ×2 (09:34→19:46)
[2017-03-17] MEDS: *HR* Metformin 500 MG TABLET PO SCH (09:34)
[2017-03-17] MEDS: Loratadine/Pseudophed (12 HR) 1 EACH TABLET PO SCH ×2 (09:35→19:47)
--- NOTE | 2017-03-17 12:20 | Psychiatry Progress Note ---
Date of Encounter: 03/17/17 Time of Encounter: 10:30 Subjective Interval history: Patient seen today for follow-up. She was very irritable angry last night with staff. Had medicated multiple times. Patient states "I cannot control myself. " She came to this provider's office this morning demanding fruit juice "because I wanted it." We discussed the appropriate way to ask for what she wants and encouraged those positive coping strategies. We discussed that we cannot discharge her home until she is more in control of her emotions and her anger. Patient verbalized understanding. She does want to be discharged soon because she wants to see her son. She also wants to work out the case with CPS. She is linear and organized today. She remained somewhat irritable. She denies SI or HI. Review of Systems Psychiatric: Reports: anxiety, abnormal sleep pattern, irritability, mood swings. Denies: suicidal ideation Objective: Exam Patient orientation: Yes Person, Yes Time, Yes Place Level of alertness: Alert Patient appearance: Appropriate, Obese Behavior: restless, dramatic Psychomotor activity: Normal Eye contact: Fleeting Contact Mood description: Euthymic/stable Affect description: labile Speech pattern: Normal rate, Normal rhythm, Normal tone, Includes Profanity Speech volume: Normal Thought process: Intact Thought content: No Suicidal ideation, No Homicidal ideation Perceptual disturbances: No Auditory hallucinations, No Visual hallucinations Judgment: Limited Insight: Partial Results - Vital Signs Vital Signs: Temp Pulse Resp BP Pulse Ox 97.8 F 71 20 152/102 99 03/17/17 09:00 03/17/17 09:00 03/17/17 09:00 03/17/17 09:00 03/14/17 05:49 Assessment and Plan (1) Bipolar disorder Current visit: Yes Status: Acute Plan: Continue hospitalization, Close observation, Suicide Precautions per unit protocol, Encourage participation in unit milieu, Group Therapy, Monitor sleep, Monitor appetite Additional Plan: We will substitute Latuda for Zyprexa at bedtime. Encourage good sleep hygiene. Monitor behavior closely. Plans for D/C in the morning and patient continues to improve. Risks, benefits, side effects, alternatives discussed w/pt: Yes Patient agreeable to treatment: Yes Qualifiers: Active/Remission status: in remission of unspecified degree Qualified Code( s): F31.70 - Bipolar disorder, currently in remission, most recent episode unspecified Consult Discharge Plan - Plan Referrals: [facility], [facility] [Other] - 03/31/17 11:00 am (You will see Dr. Bland for outpatient psychiatric assessment and medication management services on 2016 at 11:00 AM.) [facility] [Outside] - 04/06/17 10:15 am (The above appointment is with [facility] for mental health counseling services. )
[2017-03-17] MEDS: traZODone 50 MG TABLET PO PRN (19:47)
[2017-03-17] MEDS ORDERED: OLANZapine 10 MG TAB.RAPDIS PO SCH (21:00)
[2017-03-18] MEDS ORDERED: OLANZapine 10 MG TAB.RAPDIS PO ONE (00:18)
[2017-03-18] MEDS: Nicotine 2 MG GUM BC PRN ×2 (03:25→09:59)
[2017-03-18] MEDS: Acetaminophen 325 MG TABLET PO PRN (05:10)
[2017-03-18] MEDS: *HR* Metformin 500 MG TABLET PO SCH (09:49)
[2017-03-18] MEDS: Loratadine/Pseudophed (12 HR) 1 EACH TABLET PO SCH (09:49)
--- NOTE | 2017-03-18 09:50 | Discharge Summary ---
Date of Encounter: 03/18/17 Time of Encounter: 09:00 Diagnosis - Discharge Diagnosis (1) Bipolar disorder Priority: Primary Status: Acute Qualifiers: Active/Remission status: in remission of unspecified degree Qualified Code( s): F31.70 - Bipolar disorder, currently in remission, most recent episode unspecified (2) Borderline personality disorder Status: Chronic Medications - Discharge Medications Prescriptions: hydrOXYzine pamoate [HydrOXYzine Pamoate] 25 mg PO TID PRN #90 capsule PRN Reason: Anxiety [place] Carbonate 600 mg PO DAILY #30 capsule [place] Carbonate 900 mg PO HS #30 capsule risperiDONE [RisperDAL] 1 mg PO HS #30 tablet Buspirone HCl [Buspar] 15 mg PO BID 03/14/17 [History] Carvedilol 3.125 mg PO BID 03/14/17 [History] Dextroamphetamine/Amphetamine [Adderall 15 mg Tablet] 15 mg PO BID 03/14/17 [ History] Levothyroxine [Synthroid] 88 mcg PO DAILY 03/14/17 [History] Metformin HCl [Metformin HCl ER] 500 mg PO DAILY 03/14/17 [History] Montelukast [Singulair] 10 mg PO DAILY 03/14/17 [History] [place] Carbonate 600 mg PO DAILY #30 capsule 03/18/17 [Rx] [place] Carbonate 900 mg PO HS #30 capsule 03/18/17 [Rx] hydrOXYzine pamoate [HydrOXYzine Pamoate] 25 mg PO TID PRN #90 capsule 03/18/17 [Rx] risperiDONE [RisperDAL] 1 mg PO HS #30 tablet 03/18/17 [Rx] 3 Allergy/AdvReac Type Severity Reaction Status Date / Time NSAIDS (Non-Steroidal Allergy See Verified 03/14/17 03:10 Anti-Inflamma Comments promethazine [From Phenergan] Allergy See Verified 03/14/17 03:10 Comments Sulfa (Sulfonamide Allergy See Verified 03/14/17 03:10 Antibiotics) Comments Provider Date of admission: 03/16/17 10:46 Primary care physician: PCP NONE Discharging clinician: Miri Brewer Assessment and Plan - Patient/Caregiver Discharge Instructions Activity: resume usual activities as tolerated Diet: regular diet - Follow up Plan Follow up with: [facility] [Other] - 03/31/17 11:00 am (You will see Dr. Bland for outpatient psychiatric assessment and medication management services on 2016 at 11:00 AM.) [facility] [Outside] - 04/06/17 10:15 am (The above appointment is with [facility] for mental health counseling services. ) Functional capacity at discharge: independent ambulation Overall status at discharge: patient is progressing back to baseline Disposition: Home, Self-Care Hospital Course Hospital course: Ms. Gil is a 36 year old female with borderline personality disorder as well as bipolar disorder who presented to the hospital in distress and reporting manic symptoms after recent stressor of her son being involved in some sort of CPS case. Patient was admitted to [facility] for psychiatric stabilization. She is also related to therapeutic milieu and offer group and individual as well as recreational therapy. She was also offered psychoeducational materials and supportive therapy. Patient had not been taking her meds as prescribed. She was initially restarted on her lithium at a lower dose and titrated up to original dosage of 600 mg in the morning and 900 mg at bedtime. [place] level drawn prior to discharge. Patient was tried on Zyprexa but this caused some mild foot swelling and she was transitioned to Risperdal, patient states that this medication has helped her in the past. Patient was very labile and agitated throughout the hospital stay. Focused on medications and getting mood and various [id number] medications when she wanted them. However, patient was more organized and goal oriented on discharge. She has some insight into the fact that she work on coping strategies to help control anger outbursts. She was more redirectable and willing to work with staff at the time of discharge. Sleep had improved as well. She denies any thoughts of wanting to hurt herself or others. She is looking forward to being able to reconnect with her son. - Time Spent with Patient Total time spent providing and/or coordinating discharge services: Greater than 30 minutes Quality - Multiple Antipsychotics Patient discharged on 2 or more antipsychotic medications: No Procedures - Procedures Procedures: Medication Management, Crisis Stabilization, Supportive Therapy, Group Therapy, Psychoeducational Therapy Mental Status Exam - Mental Status Exam Patient orientation: Yes Person Level of alertness: Alert Patient appearance: Appropriate, Obese Behavior: cooperative, dramatic Mood description: Euthymic/stable Affect description: full range Speech pattern: Normal rate, Normal rhythm, Normal tone Speech Volume: Normal Thought process: Goal Oriented Thought Content: No Suicidal ideation, No Homicidal ideation Perceptual Disturbances: No Auditory hallucinations, No Visual hallucinations Judgment: Limited Insight: Partial
[2017-03-18 09:54] VITALS: BP 156/87
[2017-03-18] MEDS ORDERED: risperiDONE 1 MG TABLET PO SCH (21:00)
[2017-03-19] MEDS ORDERED: Lithium Carbonate 300 MG CAPSULE PO SCH (09:00)
== END 2017-03-18 11:30 | disposition home or self-care (01) | DRG 885 ==
LOC: EMEROO 03:02 → SUATTDRO 05:41 → INTOOBSV 05:41 → 1ANU 05:41
PROVIDERS: ADMIT Psychiatry & Neurology Psychiatry; ATTEND Student in an Organized Health Care Education/Training Program

== ENCOUNTER 2021-07-12 03:04 | Observation (INO) ==
[2021-07-12] MEDS ORDERED: Isovue-370 500 ML BOTTLE IVP ONE (03:29)
[2021-07-12] MEDS ORDERED: Ibuprofen 400 MG TABLET PO STA (03:40)
[2021-07-12 03:52] LABS: Bilirubin,Urine Negative (Negative); Blood,Urine Negative (Negative); Clarity,Urine Clear (Clear); Color,Urine Light-Yellow (Yellow); Glucose,Urine (UA) Normal (Normal); Ketones,Urine Negative (Negative); Leukocyte Esterase,Urine Negative (Negative); Nitrite,Urine Negative (Negative); Protein,Urine Negative (Neg-Trace); Specific Gravity,Urine 1.019 (1.010-1.025)
[2021-07-12] MEDS ORDERED: Ondansetron 4 MG/2 ML VIAL IVP STA (03:54)
[2021-07-12 04:01] LABS: Basophils % 0.9 %; Eosinophils # 0.4 K/mcL (0.0-0.6); Eosinophils % 8.2 %; Hematocrit 38.3 % (35.3-44.9); Hemoglobin 12.3 g/dL (11.5-15.4); Immature Granulocytes % 0.5 % (0-4); Lymphocytes # 1.5 K/mcL (0.6-4.6); Mean Corpuscular HGB Conc 32.1 g/dL (31.6-35.5); Mean Corpuscular Hemoglobin 28.7 pg (28.0-33.3); Mean Corpuscular Volume 89.3 fL (83.0-100.0); Mean Platelet Volume 11.4 fL (9.4-12.4); Monocytes # 0.4 K/mcL (0.0-1.3); Monocytes % 8.9 %; Platelet Count 201 K/mcL (140-400); Red Blood Count 4.29 M/mcL (3.82-4.97); Red Cell Distribution Width 13.9 % (11.5-14.5); Segmented Neutrophils % 46.5 %; White Blood Count 4.3 K/mcL (4.3-11.1)
[2021-07-12 04:16] LABS: Alanine Aminotransferase 36 Units/L (7-52); Albumin 4.2 g/dL (3.5-5.7); Albumin/Globulin Ratio 1.4 (1.1-2.2); Alkaline Phosphatase 66 Units/L (34-104); Aspartate Amino Transferase 23 Units/L (13-39); BUN/Creatinine Ratio 20 (6-26); Bilirubin,Indirect 0.5 mg/dL (0.0-1.0); Bilirubin,Total 0.5 mg/dL (0.3-1.0); Blood Urea Nitrogen 14 mg/dL (6-20); Calcium 9.2 mg/dL (8.6-10.3); Carbon Dioxide 28 mEq/L (23-29); Chloride 105 mEq/L (98-107); Globulin 2.9 g/dL (2.4-3.5); Glucose 107 mg/dL (70-105); Lipase 35 Units/L (11-82); Osmolality,Calculated 291 (280-300); Potassium 3.1 mEq/L (3.5-5.1); Sodium 140 mEq/L (136-145); Total Protein 7.1 g/dL (6.4-8.9); eGFR For African Americans > 60 (> 60); eGFR For Non-African Americans > 60 (> 60)
[2021-07-12] MEDS ORDERED: Potassium Effervescent 25 MEQ TABLET.EFF PO ONE (05:08)
[2021-07-12] MEDS ORDERED: *HR* HYDROcodone/Acet 5/325 mg TABLET PO ONE (05:42)
[2021-07-12] MEDS ORDERED: Morphine Sulfate 2 MG/ML SYRINGE IVP ONE (08:36)
[2021-07-12] MEDS ORDERED: Ketorolac 30 MG/ML VIAL IVP ONE (08:38)
[2021-07-12] MEDS ORDERED: Ondansetron 4 MG/2 ML VIAL IVP ONE (09:28)
[2021-07-12] MEDS ORDERED: Pantoprazole 40 MG VIAL IVP ONE (13:00)
[2021-07-12] MEDS: *HR* OxyCODONE/APAP 5/325 TABLET PO PRN ×2 (13:46→19:18)
[2021-07-12] MEDS: Ibuprofen 600 MG TABLET PO PRN (13:46)
[2021-07-12] MEDS: D5% in Lactated Ringers 1,000 ML IVC SCH ×2 (14:02→22:17)
[2021-07-12] MEDS ORDERED: Naloxone 0.4 MG/ML INJ IVP PRN (14:11)
[2021-07-12] MEDS ORDERED: Acetaminophen 325 MG TABLET PO PRN (14:11)
[2021-07-12] MEDS: Ondansetron 4 MG/2 ML VIAL IVP PRN ×2 (14:15→20:32)
[2021-07-12] MEDS ORDERED: carBAMazepine 200 MG TABLET PO SCH (21:00)
[2021-07-12] MEDS: *HR* Heparin 5,000 UNIT/ML VIAL SQ SCH (22:17)
[2021-07-12] MEDS: Melatonin 3 MG TABLET PO PRN (23:29)
[2021-07-13] MEDS: *HR* OxyCODONE/APAP 5/325 TABLET PO PRN (05:32)
[2021-07-13] MEDS: *HR* Heparin 5,000 UNIT/ML VIAL SQ SCH ×3 (05:36→20:19)
[2021-07-13] MEDS: Ondansetron 4 MG/2 ML VIAL IVP PRN ×3 (05:36→22:37)
[2021-07-13] MEDS ORDERED: Regadenoson 0.4 MG/5 ML SYRINGE IVP ONE (06:16)
[2021-07-13] MEDS: Budesonide/Formoterol 80/4.5 1 PUFF INH IH SCH ×2 (07:31→20:23)
[2021-07-13 08:25] LABS: Basophils # 0.1 K/mcL (0.0-0.2); Basophils % 1.1 %; Eosinophils # 0.3 K/mcL (0.0-0.6); Eosinophils % 7.7 %; Hematocrit 37.8 % (35.3-44.9); Hemoglobin 12.1 g/dL (11.5-15.4); Immature Granulocytes % 0.5 % (0-4); Lymphocytes # 1.8 K/mcL (0.6-4.6); Lymphocytes % 41.5 %; Mean Corpuscular Hemoglobin 28.1 pg (28.0-33.3); Mean Corpuscular Volume 87.7 fL (83.0-100.0); Mean Platelet Volume 11.3 fL (9.4-12.4); Monocytes # 0.5 K/mcL (0.0-1.3); Monocytes % 10.4 %; Neutrophils # 1.7 K/mcL (1.6-8.9); Platelet Count 199 K/mcL (140-400); Red Blood Count 4.31 M/mcL (3.82-4.97); Red Cell Distribution Width 14.1 % (11.5-14.5); Segmented Neutrophils % 38.8 %; White Blood Count 4.4 K/mcL (4.3-11.1)
[2021-07-13] MEDS: D5% in Lactated Ringers 1,000 ML IVC SCH ×2 (08:25→17:46)
[2021-07-13] MEDS: hydrOXYzine pamoate 25 MG CAPSULE PO SCH (08:26)
[2021-07-13 08:49] LABS: Alanine Aminotransferase 36 Units/L (7-52); Albumin/Globulin Ratio 1.5 (1.1-2.2); Alkaline Phosphatase 64 Units/L (34-104); Aspartate Amino Transferase 21 Units/L (13-39); BUN/Creatinine Ratio 15 (6-26); Bilirubin,Total 0.5 mg/dL (0.3-1.0); Blood Urea Nitrogen 13 mg/dL (6-20); Carbon Dioxide 29 mEq/L (23-29); Chloride 106 mEq/L (98-107); Chol/HDL Ratio 4.1 (0-4.9); Cholesterol 158 mg/dL (< 200); Globulin 2.6 g/dL (2.4-3.5); Glucose 99 mg/dL (70-105); HDL Cholesterol 39 mg/dL (40-59); LDL Cholesterol,Calculated 94 mg/dL (< 100); Osmolality,Calculated 290 (280-300); Phosphorous 3.6 mg/dL (2.7-4.5); Potassium 3.9 mEq/L (3.5-5.1); Sodium 140 mEq/L (136-145); Total Protein 6.6 g/dL (6.4-8.9); Triglycerides 126 mg/dL (< 150); eGFR For African Americans > 60 (> 60); eGFR For Non-African Americans > 60 (> 60)
[2021-07-13] MEDS ORDERED: lamoTRIgine 100 MG TABLET PO SCH (09:00)
[2021-07-13] MEDS: Aspirin 81 MG TAB.CHEW PO SCH (13:43)
[2021-07-13] MEDS: amLODIPine 5 MG TABLET PO SCH (13:43)
[2021-07-13] MEDS: Melatonin 3 MG TABLET PO PRN (20:19)
[2021-07-13] MEDS ORDERED: polyethylene glycoL 3350 17 GM POWD.PACK PO PRN (21:08)
[2021-07-13] MEDS ORDERED: Dextrose 4 GM Chewable Tablets PO PRN ×2 (22:48)
[2021-07-13] MEDS ORDERED: *HR* Dextrose 50 % in Water (Syg) 50 ML SYRINGE IVP PRN (22:48)
[2021-07-13] MEDS ORDERED: D5% in Water 1,000 ML IVC PRN (22:48)
[2021-07-14] MEDS: Ibuprofen 600 MG TABLET PO PRN (00:41)
[2021-07-14] MEDS: *HR* Heparin 5,000 UNIT/ML VIAL SQ SCH (04:54)
[2021-07-14] MEDS: D5% in Lactated Ringers 1,000 ML IVC SCH ×2 (05:11→08:12)
[2021-07-14 05:57] LABS: Estimated Average Glucose 105 mg/dl; Hemoglobin A1C 5.3 %
[2021-07-14] MEDS: Budesonide/Formoterol 80/4.5 1 PUFF INH IH SCH (07:48)
[2021-07-14] MEDS: Aspirin 81 MG TAB.CHEW PO SCH (08:42)
[2021-07-14] MEDS: amLODIPine 5 MG TABLET PO SCH (08:42)
[2021-07-14] MEDS: hydrOXYzine pamoate 25 MG CAPSULE PO SCH (08:43)
[2021-07-14] MEDS: Ondansetron 4 MG/2 ML VIAL IVP PRN (08:51)
[2021-07-14 10:34] VITALS: BP 129/84; PULSE 66; TEMP 98.4; O2SAT 98
== END 2021-07-14 11:22 | disposition home or self-care (01) ==
LOC: EMEROOARM 03:04 → 1NENUOBS 03:04 → SUATTDRO 08:57 → 1NENUOBS 10:15 → 3BNU 14:52
PROVIDERS: ADMIT Obstetrics & Gynecology; ATTEND Internal Medicine